=== PATIENT | female | born 1990 | race African-American/Black ===

== ENCOUNTER 2020-09-07 08:14 | Emergency (ER) | payer BC ==
[~2020-09-07] VITALS: Ht 165.1 cm; Wt 130.0 kg
[2020-09-07] MEDS ORDERED: FAMOTIDINE 20 MG TABLET. PO ONE (08:30)
[2020-09-07] MEDS ORDERED: diphenhydrAMINE 50 MG/ML VIAL IM ONE (08:30)
[2020-09-07] MEDS ORDERED: DEXAMETHASONE 4 MG TABLET PO ONE (08:30)
[2020-09-07] MEDS ORDERED: FAMO40TA4 PO (08:33)
--- NOTE | 2020-09-07 08:34 | ED.ADGEN ---
General Adult EDM: Chief Complaint: ALLERGIC REACTION HPI: HPI: Patient is a 30 year old female coming in for allergic reaction. Patient states she was bitten or stung by an insect in her right side no thrill 20 hours prior to arrival. Patient states initially was sharp sting iron the area was itchy. Thought might be a spider or mosquito but did not actually see any insect. Patient states since she has had pruritic rash and sensation that her body is "swelling". Patient denies any wheezing, difficulty breathing, tongue or throat swelling. Denies any history of prior anaphylactic reaction. Took Benadryl twice yesterday. Review of Systems: Review of Systems: All other systems within normal limits except for as noted in the HPI Physical Exam: PE: Constitutional: Well developed, well nourished, no acute distress, non-toxic appearance. HENT: Normocephalic, atraumatic, bilateral external ears normal, nose normal. [] Eyes: PERRLA, conjunctiva normal, no discharge. [] Neck: No rigidity, supple, no stridor. [] Cardiovascular: Regular rate and rhythm, brisk cap refill [] Lungs & Thorax: Non labored symmetric respirations, no tachypnea or respiratory distress [] Abdomen: Soft, nondistended. Skin: Warm, dry, no erythema, no rash. [] Erythemic rash on right flank. Blanching. No induration or fluctuance. Back: Unremarkable Extremities: No deformities, range of motion grossly intact, no lower extremity edema [] Neurologic: Alert and oriented X 3, no focal deficits noted. [] Psychologic: Affect normal, judgement normal, mood normal. [] EKG: EKG: [] Heart Score: C/O Chest Pain: No Risk Factors: Risk Factors: DM, Current or recent (<one month) smoker, HTN, HLP, family history of CAD, obesity. Risk Scores: Score 0 - 3: 2.5% MACE over next 6 weeks - Discharge Home Score 4 - 6: 20.3% MACE over next 6 weeks - Admit for Clinical Observation Score 7 - 10: 72.7% MACE over next 6 weeks - Early Invasive Strategies Radiology/Procedures: Radiology/Procedures: [] Course & Med Decision Making: Course & Med Decision Making Pertinent Labs and Imaging studies reviewed. (See chart for details) [] Dragon Disclaimer: Dragon Disclaimer: This electronic medical record was generated, in whole or in part, using a voice recognition dictation system. Departure Departure Impression: Primary Impression: Allergic reaction to insect bite Disposition: HOME / SELF CARE / HOMELESS Condition: STABLE Patient Instructions: Hives Additional Instructions: Return to emergency department if any fevers, draining from wound, or throat swelling with difficulty breathing Scripts Famotidine (FAMOTIDINE) 40 Mg Tablet 40 MG PO HS for 10 Days, #10 TAB Prov: MARLEN GRADY MD 09/07/20 MARLEN GRADY MD Sep 07, 2020 08:34
[2020-09-07 09:30] VITALS: BP 112/65
== END 2020-09-07 09:32 | disposition home or self-care (01) ==
LOC: ER 08:14
DX: T63.481A Toxic effect of venom of other arthropod, accidental (unintentional), initial encounter (principal); R21 Rash and other nonspecific skin eruption; Y92.89 Other specified places as the place of occurrence of the external cause
CPT/HCPCS: 96372; 99283; J1200

== ENCOUNTER 2020-09-28 15:04 | Emergency (ER) | payer BC ==
[~2020-09-28] VITALS: Ht 165.1 cm; Wt 270.0 kg
[~2020-09-28 15:04] MED LIST: FAMO40TA4 PO
[2020-09-28] MEDS ORDERED: ONDANSETRON PF 4 MG/2 ML VIAL. IVP ONE (17:30)
[2020-09-28] MEDS ORDERED: fentaNYL PF VIAL 100 MCG/2 ML VIAL IVP ONE (17:30)
[2020-09-28 17:32] LABS: BILIRUBIN,URINE NEGATIVE (NEG); CLARITY,URINE CLEAR; COLOR,URINE YELLOW; NITRITE,URINE NEGATIVE (NEG); PH,URINE 5.5 (<5.0-8.0); PROTEIN,URINE NEGATIVE (NEG-TRACE); UROBILINOGEN,URINE 0.2 mg/dL (0.2 mg/dL)
[2020-09-28 17:35] LABS: BASO # 0.1 x10^3/uL (0.0-0.2); BASO % 1 % (0-3); EOS # 0.1 x10^3/uL (0.0-0.7); EOS % 1 % (0-3); HEMATOCRIT 44.8 % (36.0-47.0); HEMOGLOBIN 15.5 g/dL (12.0-15.5); LYMPH # 2.1 x10^3/uL (1.0-4.8); LYMPH % 24 % (24-48); MEAN CORPUSCULAR HEMOGLOBIN 32 pg (25-35); MEAN CORPUSCULAR HGB CONC 35 g/dL (31-37); MEAN CORPUSCULAR VOLUME 92 fL (79-100); MONO # 0.4 x10^3/uL (0.0-1.1); MONO % 5 % (0-9); NEUT % 69 % (31-73); PLATELET COUNT 216 x10^3/uL (140-400); RED BLOOD COUNT 4.86 x10^6/uL (3.50-5.40); WHITE BLOOD COUNT 8.7 x10^3/uL (4.0-11.0)
[2020-09-28 17:38] LABS: BACTERIA,URINE MOD /HPF (0-FEW); RBC,URINE 0 /HPF (0-2); WBC,URINE OCC /HPF (0-4)
[2020-09-28 17:44] LABS: CALCIUM 9.1 mg/dL (8.5-10.1); GFR 77.7; POTASSIUM 3.8 mmol/L (3.5-5.1)
[2020-09-28] MEDS ORDERED: IOHEXOL 300 MG/ML 100ML VIAL. IV ONE (17:45)
[2020-09-28] MEDS ORDERED: IOHEXOL 240 MG/ML 50ML VIAL. PO ONE (17:45)
[2020-09-28] MEDS ORDERED: CONTRAST GIVEN. MC PRN (17:45)
--- NOTE | 2020-09-28 17:47 | ED.ADGEN ---
Past Medical History Past Medical History: Stroke Additional Past Medical Histor: THYROID CA Past Surgical History: Hysterectomy Additional Past Surgical Histo: THYROIDECTOMY GGALLBLADDER BILATERAL KNEE SCOPE Smoking Status: Current Every Day Smoker Alcohol Use: Occasionally General Adult EDM: Chief Complaint: FLANK PAIN HPI: HPI: Patient is a 30 year old female who presented to ER for evaluation of low abdominal pain started at the umbilical area that radiated to her right lower abdominal area. Her symptoms started at noon today. Patient denies any fever, no nausea vomiting. She denies urinary symptoms. Patient has history of hysterectomy and cholecystectomy.. Patient described the pain as sharp pain and worse with movement and walking. Review of Systems: Review of Systems: Complete ROS is negative unless otherwise documented in HPI Current Medications: Current Medications Medications (Trade) Dose Ordered Sig/Cecil Start Time Stop Time Status Last Admin Dose Admin Diphenhydramine HCl (Benadryl) 50 mg 1X ONCE 09/28/20 20:00 09/28/20 20:01 DC 09/28/20 19:27 50 MG Famotidine (Pepcid Vial) 20 mg 1X ONCE 09/28/20 20:00 09/28/20 20:01 DC 09/28/20 19:27 20 MG Fentanyl Citrate (Fentanyl 2ml Vial) 50 mcg 1X ONCE 09/28/20 17:30 09/28/20 17:31 DC 09/28/20 17:45 50 MCG Info (CONTRAST GIVEN -- Rx MONITORING) 1 each PRN DAILY PRN 09/28/20 17:45 09/28/20 22:20 DC Iohexol (Omnipaque 240 Mg/ml) 50 ml 1X ONCE 09/28/20 17:45 09/28/20 17:46 DC 09/28/20 18:45 50 ML Iohexol (Omnipaque 300 Mg/ml) 75 ml 1X ONCE 09/28/20 17:45 09/28/20 17:46 DC 09/28/20 18:45 75 ML Ketorolac Tromethamine (Toradol 30mg Vial) 30 mg 1X ONCE 09/28/20 20:15 09/28/20 20:16 DC 09/28/20 20:10 30 MG Methylprednisolone Sodium Succinate (SOLU-Medrol 125MG VIAL) 125 mg 1X ONCE 09/28/20 20:00 09/28/20 20:01 DC 6/28/21 19:30 125 MG Ondansetron HCl (Zofran) 4 mg 1X ONCE 09/28/20 17:30 09/28/20 17:31 DC 09/28/20 17:45 4 MG Sodium Chloride 1,000 ml @ 1,000 mls/hr 1X ONCE 09/28/20 18:30 09/28/20 19:29 DC 09/28/20 19:27 1,000 MLS/HR Allergies: Allergies: Allergies Coded Allergies Type Severity Reaction Last Updated Verified cefaclor Allergy Unknown 09/07/20 Yes cyclobenzaprine Allergy Unknown 09/07/20 Yes morphine Allergy Unknown 09/07/20 Yes Physical Exam: PE: See Above Constitutional: Well developed, well nourished, no acute distress, non-toxic appearance. [] HENT: Normocephalic, atraumatic, bilateral external ears normal, oropharynx moist, no oral exudates, nose normal. [] Eyes: PERRLA, EOMI, conjunctiva normal, no discharge. [] Neck: Normal range of motion, no tenderness, supple, no stridor. [] Cardiovascular:Heart rate regular rhythm, no murmur [] Lungs & Thorax: Bilateral breath sounds clear to auscultation [] Abdomen: Bowel sounds normal, soft, very tender to palpation in the suprapubic area and right lower abdominal area, no masses, no pulsatile masses. [] Skin: Warm, dry, no erythema, no rash. [] Back: No tenderness, no CVA tenderness. [] Extremities: No tenderness, no cyanosis, no clubbing, ROM intact, no edema. [] Neurologic: Alert and oriented X 3, normal motor function, normal sensory function, no focal deficits noted. [] Psychologic: Affect normal, judgement normal, mood normal. [] Current Patient Data: Labs: Laboratory Tests Test 09/28/20 17:15 09/28/20 17:20 09/28/20 17:27 Urine Collection Type Unknown Urine Color Yellow Urine Clarity Clear Urine pH 5.5 (<5.0-8.0) Urine Specific [place] 1.020 (1.000-1.030) Urine Protein Negative mg/dL (NEG-TRACE) Urine Glucose (UA) Negative mg/dL (NEG) Urine Ketones (Stick) Trace mg/dL (NEG) Urine Blood Negative (NEG) Urine Nitrite Negative (NEG) Urine Bilirubin Negative (NEG) Urine Urobilinogen Dipstick 0.2 mg/dL (0.2 mg/dL) Urine Leukocyte Esterase Negative (NEG) Urine RBC 0 /HPF (0-2) Urine WBC Occ /HPF (0-4) Urine Squamous Epithelial Cells Mod /LPF Urine Bacteria Mod /HPF (0-FEW) Urine Mucus Mod /LPF White Blood Count 8.7 x10^3/uL (4.0-11.0) Red Blood Count 4.86 x10^6/uL (3.50-5.40) Hemoglobin 15.5 g/dL (12.0-15.5) Hematocrit 44.8 % (36.0-47.0) Mean Corpuscular Volume 92 fL (79-100) Mean Corpuscular Hemoglobin 32 pg (25-35) Mean Corpuscular Hemoglobin Concent 35 g/dL (31-37) Red Cell Distribution Width 13.0 % (11.5-14.5) Platelet Count 216 x10^3/uL (140-400) Neutrophils (%) (Auto) 69 % (31-73) Lymphocytes (%) (Auto) 24 % (24-48) Monocytes (%) (Auto) 5 % (0-9) Eosinophils (%) (Auto) 1 % (0-3) Basophils (%) (Auto) 1 % (0-3) Neutrophils # (Auto) 6.0 x10^3/uL (1.8-7.7) Lymphocytes # (Auto) 2.1 x10^3/uL (1.0-4.8) Monocytes # (Auto) 0.4 x10^3/uL (0.0-1.1) Eosinophils # (Auto) 0.1 x10^3/uL (0.0-0.7) Basophils # (Auto) 0.1 x10^3/uL (0.0-0.2) Sodium Level 143 mmol/L (136-145) Potassium Level 3.8 mmol/L (3.5-5.1) Chloride Level 104 mmol/L (98-107) Carbon Dioxide Level 29 mmol/L (21-32) Anion Gap 10 (6-14) Blood Urea Nitrogen 11 mg/dL (7-20) Creatinine 1.0 mg/dL (0.6-1.0) Estimated GFR (Cockcroft-Gault) 77.7 BUN/Creatinine Ratio 11 (6-20) Glucose Level 101 mg/dL (70-99) H Calcium Level 9.1 mg/dL (8.5-10.1) Total Bilirubin 0.9 mg/dL (0.2-1.0) Aspartate Amino Transferase (AST) 13 U/L (15-37) L Alanine Aminotransferase (ALT) 26 U/L (14-59) Alkaline Phosphatase 64 U/L (46-116) Total Protein 7.4 g/dL (6.4-8.2) Albumin 4.0 g/dL (3.4-5.0) Albumin/Globulin Ratio 1.2 (1.0-1.7) Lipase 57 U/L (73-393) L POC Urine HCG, Qualitative Hcg negative (Negative) Laboratory Tests 09/28/20 17:20 Laboratory Tests 09/28/20 17:20 Vital Signs: Vital Signs Date Time Temp Pulse Resp B/P (MAP) Pulse Ox O2 Delivery O2 Flow Rate FiO2 09/28/20 21:23 68 20 109/58 (75) 100 Room Air 09/28/20 16:23 98.1 98.1 EKG: EKG: [] Heart Score: C/O Chest Pain: N/A Risk Factors: Risk Factors: DM, Current or recent (<one month) smoker, HTN, HLP, family history of CAD, obesity. Risk Scores: Score 0 - 3: 2.5% MACE over next 6 weeks - Discharge Home Score 4 - 6: 20.3% MACE over next 6 weeks - Admit for Clinical Observation Score 7 - 10: 72.7% MACE over next 6 weeks - Early Invasive Strategies Radiology/Procedures: Radiology/Procedures: [][facility] [address] [place] [address] IMAGING REPORT Signed PATIENT: ASHLIE CORTES ACCOUNT: [id number] : 1990 LOCATION: ER AGE: 30 SEX: F EXAM STATUS: REG ER ORD. PHYSICIAN: JOHANA MCCARTY MD REASON: RLQ abd pain, vomiting PROCEDURE: CT ABD PELV W/ORAL&IV CONTRAST CT ABDOMEN+PELVIS W History: Reason: RLQ abd pain, vomiting / Spl. Instructions: IV omni 300 75 mls and PO omni 240 50 mls / History: Technique: After the administration of intravenous contrast, CT imaging was performed of the abdomen and pelvis. Multiplanar images are reviewed. Exposure: One or more of the following individualized dose reduction techniques were utilized for this examination: 1. Automated exposure control 2. Adjustment of the mA and/or kV according to patient size 3. Use of iterative reconstruction technique. Comparison: None Findings: Lower chest: No consolidation or pleural effusion. Abdomen and pelvis: The liver, spleen, adrenal glands, and pancreas are unremarkable. Prior cholecystectomy. No biliary ductal dilatation. Patent portal vein. No hydronephrosis. No renal calculi. Decompressed urinary bladder. Normal appendix. No evidence of bowel obstruction. Oral contrast opacifies to the level of the distal small bowel. No pathologic lymphadenopathy. Prior hysterectomy. Left adnexal cystic lesion measures 1.9 x 1.7 cm. Small increased density fluid within the pelvis. Bones: No pathologic osseous lesions. Impression: 1. Left adnexal cystic lesion with small hemoperitoneum, may represent recently ruptured hemorrhagic ovarian cyst. Ultrasound can further evaluate if clinically indicated. Electronically signed by: Bruce Esteban DO (09/28/2020 7:21 PM) [facility] DICTATED and SIGNED BY: BRUCE ESTEBAN DO DATE: 09/28/20 [id number] [facility] [address] [place] [address] IMAGING REPORT Signed PATIENT: ASHLIE CORTES ACCOUNT: [id number] : 1990 LOCATION: ER AGE: 30 SEX: F EXAM STATUS: REG ER ORD. PHYSICIAN: MAT GONZÁLES DO REASON: lower abdominal pain, pelvic pain PROCEDURE: PELVIS ULTRASOUND US PELVIS COMPLETE History: Reason: lower abdominal pain, pelvic pain / Spl. Instructions: / History: Comparison: CT September 28, 2020 Technique: Grayscale and color Doppler imaging of the pelvis was performed using transabdominal technique. Findings: Prior hysterectomy and right oophorectomy. Left ovary measures 2.7 x 3.1 x 2.4 cm. Left ovarian follicle measures 2.1 x 1.4 x 1.6 cm. IMPRESSION: 1. Left ovarian follicle. 2. Prior hysterectomy and right oophorectomy. Electronically signed by: Bruce Esteban DO (09/28/2020 9:26 PM) [facility] DICTATED and SIGNED BY: BRUCE ESTEBAN DO DATE: 09/28/20 [id number] 0 Course & Med Decision Making: Course & Med Decision Making Pertinent Labs and Imaging studies reviewed. (See chart for details) Patient came back from CT scan, she started having itchy and rash all over her body. Patient denies trouble breathing or any chest pain or any trouble swallowing. Patient is suspected to have allergic reaction to IV contrast. Patient says She had IV contrast in the past without a problem. Patient was given IV fluid, IV Benadryl and IV Pepcid with IV Solu-Medrol. Patient felt much better. CT scan of her abdomen pelvis showed some small free fluid in her pelvic area, ultrasound shows some ovarian cysts. Patient vital signs were stable. Pain was under control. It is suspected that patient has a ruptured ovarian cyst that causes her the pain. Patient was discharged in stable condition. CT scan showed a normal appendix. Patient was here to take her home Dragon Disclaimer: Dragon Disclaimer: This electronic medical record was generated, in whole or in part, using a voice recognition dictation system. Departure Departure Impression: Primary Impression: Abdominal pain Additional Impressions: Ovarian cyst Allergic to IV contrast Disposition: 01 HOME / SELF CARE / HOMELESS Condition: IMPROVED Referrals: COY KHAN DO (PCP) Follow up with your doctor IN 2 DAYS Patient Instructions: Abdominal Pain, Drug Allergy, Ovarian Cyst Additional Instructions: Take 50 mg Benadryl every 6 hours as needed for itching OR RASH. Return to ER [facility] if you have trouble breathing or trouble swallowing. You did have an allergic reaction to IV contrast please list IV CONTRAST as an allergy FROM NOW ON. Thank you for visiting our Emergency Department. We appreciate you trusting us with your care. If any additional problems come up don't hesitate to return to visit us. Please follow up with your primary care provider so they can plan additional care if needed and know about the problem that you had. If symptoms worsen come back to the Emergency Department. Any concerning symptoms that start such as chest pain, shortness of air, weakness or numbness on one side of the body, running high fevers or any other concerning symptoms return to the ER. Scripts Tramadol Hcl (TRAMADOL HCL) 50 Mg Tablet 50 MG PO Q6HRS PRN for PAIN, #15 TAB Prov: MAT GONZÁLES DO 09/28/20 Prednisone (PREDNISONE) 20 Mg Tablet 1 TAB PO DAILY, #5 TAB Prov: MAT GONZÁLES DO 09/28/20 Problem Qualifiers JOHANA MCCARTY MD Sep 28, 2020 17:46 MAT GONZÁLES DO Sep 28, 2020 19:39
[2020-09-28 17:51] LABS: ALBUMIN/GLOBULIN RATIO 1.2 (1.0-1.7); TOTAL BILIRUBIN 0.9 mg/dL (0.2-1.0); TOTAL PROTEIN 7.4 g/dL (6.4-8.2)
[2020-09-28] MEDS ORDERED: IV NORMAL SALINE 1000ML BAG 1,000 ML IV ONE (18:30)
--- NOTE | 2020-09-28 19:23 | RAD ---
CT ABDOMEN+PELVIS W History: Reason: RLQ abd pain, vomiting / Spl. Instructions: IV omni 300 75 mls and PO omni 240 50 ml s / History: Technique: After the administration of intravenous contrast, CT imaging was performed of the abdomen and pelvis. Multiplanar images are reviewed. Exposure: One or more of the following individualized dose reduction techniques were utilized for thi s examination: 1. Automated exposure control 2. Adjustment of the mA and/or kV according to patient size 3. Use of iterative reconstruction technique. Comparison: None Findings: Lower chest: No consolidation or pleural effusion. Abdomen and pelvis: The liver, spleen, adrenal glands, and pancreas are unremarkable. Prior cholecyst ectomy. No biliary ductal dilatation. Patent portal vein. No hydronephrosis. No renal calculi. Decomp ressed urinary bladder. Normal appendix. No evidence of bowel obstruction. Oral contrast opacifies to the level of the distal small bowel. No pathologic lymphadenopathy. Prior hysterectomy. Left adnexal cystic lesion measures 1.9 x 1.7 cm. Small increased density fluid w ithin the pelvis. Bones: No pathologic osseous lesions. Impression: 1. Left adnexal cystic lesion with small hemoperitoneum, may represent recently ruptured hemorrhagic ovarian cyst. Ultrasound can further evaluate if clinically indicated. Electronically signed by: Bruce Esteban DO (09/28/2020 7:21 PM) [facility]
[2020-09-28] MEDS ORDERED: methylPREDNISolone SOD SUCC PF 125 MG/2 ML VIAL. IV ONE (20:00)
[2020-09-28] MEDS ORDERED: FAMOTIDINE 20 MG/2 ML VIAL IVP ONE (20:00)
[2020-09-28] MEDS ORDERED: diphenhydrAMINE 50 MG/ML VIAL IVP ONE (20:00)
[2020-09-28] MEDS ORDERED: KETOROLAC 30 MG/ML VIAL. IVP ONE (20:15)
[2020-09-28 21:23] VITALS: BP 109/58
--- NOTE | 2020-09-28 21:28 | RAD ---
US PELVIS COMPLETE History: Reason: lower abdominal pain, pelvic pain / Spl. Instructions: / History: Comparison: CT September 28, 2020 Technique: Grayscale and color Doppler imaging of the pelvis was performed using transabdominal techn ique. Findings: Prior hysterectomy and right oophorectomy. Left ovary measures 2.7 x 3.1 x 2.4 cm. Left ovarian follicle measures 2.1 x 1.4 x 1.6 cm. IMPRESSION: 1. Left ovarian follicle. 2. Prior hysterectomy and right oophorectomy. Electronically signed by: Bruce Esteban DO (09/28/2020 9:26 PM) [facility]
[2020-09-28] MEDS ORDERED: TRAM50TA PO (21:56)
[2020-09-28] MEDS ORDERED: PRED20TA PO (21:56)
== END 2020-09-28 22:20 | disposition home or self-care (01) ==
LOC: ER 15:04
DX: N83.202 Unspecified ovarian cyst, left side (principal); R21 Rash and other nonspecific skin eruption; T50.8X5A Adverse effect of diagnostic agents, initial encounter; F17.200 Nicotine dependence, unspecified, uncomplicated; Z86.73 Personal history of transient ischemic attack (TIA), and cerebral infarction without residual deficits; Z90.710 Acquired absence of both cervix and uterus; Z88.5 Allergy status to narcotic agent; Z88.1 Allergy status to other antibiotic agents; Z88.8 Allergy status to other drugs, medicaments and biological substances; Y92.89 Other specified places as the place of occurrence of the external cause
CPT/HCPCS: 36415; 74177; 76856; 80053; 81001; 81025; 83690; 85025; 96361; 96374; 96375; 99285; J1200; J1885; J2405; J2930; J3010; J3490; J7030; Q9966; Q9967